=== PATIENT | female | born 1980 ===

== ENCOUNTER 2017-06-03 07:47 | Emergency (ER) | payer OTHER ==
[2017-06-03 07:48] VITALS: BMI 28.0
--- NOTE | 2017-06-03 08:58 | C.PDOC ---
History Of Present Illness 37 yo female c/o dysuria and urinary frequency for 1 week. (+) lower back pain. No fever or vaginal discharge. Notes h/o similar symptoms in the past when diagnosed with UTI. Time Seen by Provider: 06/03/17 08:34 Chief Complaint (Nursing): Female Genitourinary History Per: Patient History/Exam Limitations: no limitations Onset/Duration Of Symptoms: Days Current Symptoms Are (Timing): Still Present Past Medical History Vital Signs: Last Vital Signs Temp 98.0 F 06/03/17 07:52 Pulse 71 06/03/17 07:52 Resp 17 06/03/17 07:52 BP 122/82 06/03/17 07:52 Pulse Ox 99 06/03/17 09:29 - Medical History PMH: Arthritis - [facility] Procedures BILAT TUBAL DIVISION NEC (11/28/13) LOW CERVICAL (11/28/13) Family History: States: Unknown Family Hx - Social History Hx Tobacco Use: No Hx Alcohol Use: No Hx Substance Use: No - Immunization History Hx Tetanus Toxoid Vaccination: No Hx Influenza Vaccination: No Hx Pneumococcal Vaccination: No Review Of Systems Except As Marked, All Systems Reviewed And Found Negative. Constitutional: Negative for: Fever Cardiovascular: Negative for: Chest Pain Respiratory: Negative for: Shortness of Breath Gastrointestinal: Positive for: Abdominal Pain (suprapubic). Negative for: Nausea, Vomiting Genitourinary: Positive for: Dysuria, Frequency. Negative for: Vaginal Discharge Physical Exam - Physical Exam Appears: Well, Non-toxic, No Acute Distress Skin: Normal Color, Warm, Dry Head: Atraumatic, Normacephalic Eye(s): bilateral: Normal Inspection, EOMI Nose: Normal Oral Mucosa: Moist Neck: Normal, Normal ROM, Supple Chest: Symmetrical Cardiovascular: Rhythm Regular Respiratory: Normal Breath Sounds Gastrointestinal/Abdominal: Soft, Tenderness ((+) suprapubic pain) Back: No CVA Tenderness, No Vertebral Tenderness, Paraspinal Tenderness ((+) lower back pain) Extremity: Normal ROM Neurological/Psych: Oriented x3, Normal Speech ED Course And Treatment O2 Sat by Pulse Oximetry: 99 Progress Note: Pt instructed to follow up with PMD in 1-2 days or return to ER if symptoms persist or worsen. Disposition - Disposition Disposition: HOME/ ROUTINE Disposition Time: 09:28 Condition: STABLE Additional Instructions: Follow up with your primary medical doctor or clinic in 2-5 days for further evaluation. Take medications as prescribed. Return to the emergency department at any time if symptoms persist or worsen. Prescriptions: Ciprofloxacin HCl [Cipro] 500 mg PO BID #14 tab Phenazopyridine HCl [Pyridium] 100 mg PO TID #6 tablet Instructions: Urinary Tract Infection in Women (ED) Forms: [facility] (Welsh) - Clinical Impression Clinical Impression: UTI (urinary tract infection)
[2017-06-03 09:12] LABS: RBC URINE 86 /hpf (0-3); URINE BACTERIA OCC (<OCC); URINE BILIRUBIN NEGATIVE (NEGATIVE); URINE BLOOD 3+ (NEGATIVE); URINE COLOR Yellow (YELLOW); URINE GLUCOSE (UA) NORMAL (Normal); URINE KETONE NEGATIVE (NEGATIVE); URINE LEUKOCYTE ESTERASE 3+ Leu/uL (Negative); URINE PROTEIN 2+ mg/dL (NEGATIVE); URINE UROBILINOGEN NORMAL mg/dL (0.2-1.0); WBC CLUMPS MANY /hpf; WBC URINE 944 /hpf (0-5)
[2017-06-03 10:14] VITALS: BP 130/89; PULSE 68; RESP 16; TEMP 97.9; O2SAT 100
== END 2017-06-03 09:45 | disposition home or self-care (01) ==
LOC: C.ER 07:47
DX: N39.0 Urinary tract infection, site not specified (principal)

== ENCOUNTER 2017-07-24 00:33 | Emergency (ER) | payer OTHER ==
[2017-07-24 00:33] VITALS: BMI 28.0
[2017-07-24 00:41] VITALS: O2SAT 98
[2017-07-24 01:53] LABS: RBC URINE 41 /hpf (0-3); URINE BACTERIA RARE (<OCC); URINE BILIRUBIN NEGATIVE (NEGATIVE); URINE BLOOD 2+ (NEGATIVE); URINE COLOR Yellow (YELLOW); URINE GLUCOSE (UA) NORMAL (Normal); URINE KETONE NEGATIVE (NEGATIVE); URINE LEUKOCYTE ESTERASE 3+ Leu/uL (Negative); URINE PROTEIN 1+ mg/dL (NEGATIVE); URINE UROBILINOGEN NORMAL mg/dL (0.2-1.0); WBC CLUMPS FEW /hpf; WBC URINE 274 /hpf (0-5)
--- NOTE | 2017-07-24 01:58 | C.PDOC ---
History Of Present Illness Pt presents to ER with c/o of dysuria si ce yesterday. Reports past h/o intermittent UTI. Pt states at last treatment she did not complete full dose of prescribed antibiotics. Pt denies abd pain, back pain, vomiting, dizziness. Pt is currently menstruating Time Seen by Provider: 07/24/17 00:48 Chief Complaint (Nursing): Female Genitourinary History Per: Patient History/Exam Limitations: no limitations Current Symptoms Are (Timing): Still Present Severity: Mild Associated Symptoms: denies: Fever, Vomiting, Diarrhea, Back Pain, Constipation Recent travel outside of the [place]: No Last Menstral Period: now Past Medical History Vital Signs: Last Vital Signs Temp 97.6 F 07/24/17 02:02 Pulse 78 07/24/17 02:02 Resp 17 07/24/17 02:02 BP 121/68 07/24/17 02:02 Pulse Ox 98 07/24/17 02:02 - Medical History PMH: Arthritis - [facility] Procedures BILAT TUBAL DIVISION NEC (11/28/13) LOW CERVICAL (11/28/13) Family History: States: Unknown Family Hx - Social History Hx Tobacco Use: No Hx Alcohol Use: No Hx Substance Use: No - Immunization History Hx Tetanus Toxoid Vaccination: No Hx Influenza Vaccination: No Hx Pneumococcal Vaccination: No Review Of Systems Constitutional: Negative for: Fever, Chills Gastrointestinal: Negative for: Nausea, Abdominal Pain Genitourinary: Positive for: Dysuria. Negative for: Frequency, Hematuria, Vaginal Discharge Physical Exam - Physical Exam Appears: Well, Non-toxic, No Acute Distress Skin: Normal Color Eye(s): bilateral: Normal Inspection, PERRL Gastrointestinal/Abdominal: Normal Exam, Soft, No Tenderness, No Distention Back: Normal Inspection, No CVA Tenderness Pelvic: Other (not done,no pelvic c/o) ED Course And Treatment O2 Sat by Pulse Oximetry: 98 Disposition Counseled Patient/Family Regarding: Diagnosis, Need For Followup, Rx Given - Disposition Referrals: [facility] [Outside] Disposition: HOME/ ROUTINE Disposition Time: 01:56 Condition: STABLE Additional Instructions: Increase PO fluids Take meds as directed Return to ER if worse Prescriptions: Nitrofurantoin Macrocrystals [Macrobid] 1 cap PO BID #14 cap Phenazopyridine HCl [Pyridium] 100 mg PO TID #5 tab Instructions: Phenazopyridine (By mouth), Nitrofurantoin Macrocrystals (By mouth), Urinary Tract Infection in Women (ED) Forms: [facility] (Congolese) Print Language: CHINESE - Clinical Impression Clinical Impression: UTI (urinary tract infection)
[2017-07-24 02:07] VITALS: BP 121/68; PULSE 78; RESP 17; TEMP 97.6
== END 2017-07-24 02:08 | disposition home or self-care (01) ==
LOC: C.ER 00:33
DX: N39.0 Urinary tract infection, site not specified (principal)

== ENCOUNTER 2017-10-15 09:56 | Emergency (ER) | payer OTHER ==
[2017-10-15 09:58] VITALS: BMI 28.0
[2017-10-15 10:06] VITALS: TEMP 97.9; O2SAT 100
--- NOTE | 2017-10-15 12:08 | C.PDOC ---
History Of Present Illness 37 yr old female presents to the ER for evaluation of sore throat and a lump to the right scalp region for the past 2 weeks. Patient denies fever, chills, vision changes, cough, nausea, vomiting, neck pain, weakness, numbness or headache. Time Seen by Provider: 10/15/17 10:23 Chief Complaint (Nursing): ENT Problem History Per: Patient History/Exam Limitations: no limitations Onset/Duration Of Symptoms: Days (2 weeks) Past Medical History Reviewed: Historical Data, Nursing Documentation, Vital Signs Vital Signs: Last Vital Signs Temp 97.9 F 10/15/17 10:03 Pulse 69 10/15/17 12:15 Resp 18 10/15/17 12:15 BP 136/89 10/15/17 12:15 Pulse Ox 100 10/15/17 12:15 - Medical History PMH: Arthritis, Rheumatoid Arthritis - [facility] Procedures BILAT TUBAL DIVISION NEC (11/28/13) LOW CERVICAL (11/28/13) Family History: States: No Known Family Hx - Social History Hx Tobacco Use: No Hx Alcohol Use: No Hx Substance Use: No - Immunization History Hx Tetanus Toxoid Vaccination: No Hx Influenza Vaccination: No Hx Pneumococcal Vaccination: No Review Of Systems Except As Marked, All Systems Reviewed And Found Negative. Constitutional: Negative for: Fever, Chills Eyes: Negative for: Vision Change ENT: Positive for: Throat Pain (sore throat) Respiratory: Negative for: Cough Gastrointestinal: Negative for: Nausea, Vomiting Musculoskeletal: Negative for: Neck Pain Skin: Positive for: Other (+ lump on the right scalp region) Neurological: Negative for: Weakness, Numbness, Headache Physical Exam - Physical Exam Appears: Non-toxic, No Acute Distress Skin: Warm, Dry, No Rash Head: Atraumatic, Normacephalic Eye(s): bilateral: Normal Inspection, PERRL, EOMI Oral Mucosa: Moist Throat: Erythema (tonsilar), No Exudate Neck: Normal, Normal ROM, Supple Lymphatic: Other (+ tender palpable node on the right, no cellulitic process) Cardiovascular: Rhythm Regular, No Murmur Respiratory: Normal Breath Sounds, No Rales, No Rhonchi, No Stridor, No Wheezing Extremity: Normal ROM, No Swelling Neurological/Psych: Oriented x3, Normal Speech ED Course And Treatment O2 Sat by Pulse Oximetry: 100 (RA) Pulse Ox Interpretation: Normal Medical Decision Making Medical Decision Making: IMPRESSION: Lymphangitis PLAN: * Keflex PO * Motrin PO NOTE: * Patient treated with Keflex and Motrin * On reevaluation, patient reports improvement of symptoms * Patient is discharged home to follow up with PMD in 2 days for further evaluation Disposition Counseled Patient/Family Regarding: Studies Performed, Diagnosis, Need For Followup, Rx Given - Disposition Referrals: at [facility] [Outside] Disposition: HOME/ ROUTINE Disposition Time: 12:05 Condition: STABLE Additional Instructions: follow up with your doctor in 2 days call to make an appointment take medications as prescribed return to ER if symptoms worsens or progress Prescriptions: Cephalexin [Keflex] 500 mg PO QID #40 capsule Naproxen [Naprosyn] 500 mg PO BID PRN #16 tab PRN Reason: Pain, Moderate (4-7) Instructions: Sore Throat, Adult (DC), Chronic Lymphadenitis (DC) Forms: [facility] (Greek), Gen Discharge Inst Greek Print Language: INDONESIAN - Clinical Impression Clinical Impression: Lymphadenitis - Scribe Statement The provider has reviewed the documentation as recorded by the Daisyiblester [place] Provider Attestation: All medical record entries made by the Ave were at my direction and personally dictated by me. I have reviewed the chart and agree that the record accurately reflects my personal performance of the history, physical exam, medical decision making, and the department course for this patient. I have also personally directed, reviewed, and agree with the discharge instructions and disposition.
[2017-10-15 12:16] VITALS: BP 136/89; PULSE 69; RESP 18
== END 2017-10-15 12:17 | disposition home or self-care (01) ==
LOC: C.ER 09:56
DX: I88.9 Nonspecific lymphadenitis, unspecified (principal)

== ENCOUNTER 2018-04-29 20:34 | Observation (INO) | payer MEDICAID, OTHER ==
[2018-04-29 20:35] VITALS: BMI 28.0
[2018-04-29] MEDS ORDERED: Sodium Chloride 0.9% 1,000 ML IV ONE (21:05)
--- NOTE | 2018-04-29 21:09 | C.PDOC ---
History Of Present Illness 38 year old female with PMH RA presents to the ER with a complaint of abdominal pain associated with nausea and NB vomiting since 299. 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 H/o similar episodes in the past with self resolution. Denies fever, sob, dysuria, or diarrhea. 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 denies: Fever, Chills, Diarrhea Exacerbating Factors: None Alleviating Factors: None Recent travel outside of the [place]: No Abnormal Vaginal Bleeding: No Past Medical History Reviewed: Historical Data, Nursing Documentation, Vital Signs Vital Signs: Last Vital Signs Temp 98.1 F 04/30/18 01:27 Pulse 69 04/30/18 01:27 Resp 18 04/30/18 01:27 BP 108/70 04/30/18 01:27 Pulse Ox 100 04/30/18 02:16 - Medical History PMH: Arthritis, Rheumatoid Arthritis Surgical History: - [facility] Procedures BILAT TUBAL DIVISION NEC (11/28/13) LOW CERVICAL (11/28/13) Family History: States: Unknown Family Hx - Social History Hx Tobacco Use: No Hx Alcohol Use: No Hx Substance Use: No - Immunization History Hx Tetanus Toxoid Vaccination: No Hx Influenza Vaccination: No Hx Pneumococcal Vaccination: No Review Of Systems Constitutional: Negative for: Fever, Chills ENT: Negative for: Throat Pain Respiratory: Negative for: Cough Gastrointestinal: Positive for: Nausea, Vomiting, Abdominal Pain. Negative for : Diarrhea Genitourinary: Negative for: Dysuria, Hematuria Skin: Negative for: Rash Physical Exam - Physical Exam Appears: Non-toxic, Other (uncomfortable) Skin: Normal Color, Warm, Dry Head: Atraumatic, Normacephalic Eye(s): bilateral: Normal Inspection, EOMI Nose: Normal Oral Mucosa: Moist Neck: Normal, Normal ROM, Supple Chest: Symmetrical, No Tenderness Cardiovascular: Rhythm Regular Respiratory: Normal Breath Sounds, No Rales, No Rhonchi, No Wheezing Gastrointestinal/Abdominal: Soft, Tenderness (RUQ, epigastric), No Guarding, No Rebound Back: No CVA Tenderness Extremity: Normal ROM Neurological/Psych: Oriented x3, Normal Speech ED Course And Treatment - Laboratory Results Result Diagrams: 04/29/18 21:21 04/29/18 21:21 O2 Sat by Pulse Oximetry: 100 (Room air) Pulse Ox Interpretation: Normal - CT Scan/US CT Abd/Pelvis Other Rad Studies (CT/US): Read By Radiologist, Radiology Report Reviewed CT/US Interpretation: Name: RIGOBERTO WOOD Age: 38Years F Date: 04/29/2018. Requesting Physician: Sulema Cheema PA-C : 1980. [employer] Procedure Ordered As Accession Number of Images. US ABDOMEN COMPLETE US ABDOMEN COMPLETE [id number] 61. Provided Clinical History: Pain. CONFIDENTIALITY STATEMENT. This report is intended only for the use of the referring physician, and only in accordance with law, If you received this in error, call [phone]. Page 1 of 1. EXAM: US Abdomen Complete. EXAM DATE/ TIME: 04/29/2018 9:06 PM. CLINICAL HISTORY: 38 years old, female; Pain; Other : Not specified. TECHNIQUE: Real-time ultrasound of the abdomen with image documentation. COMPARISON: No relevant prior studies available. FINDINGS: Liver: Normal. No mass. Gallbladder: Multiple calcified gallstones are present. Positive Kovacs's sign. Gallbladder wall. thickening measuring 5 mm. Common bile duct: Normal. No stones. No dilation. 5 mm. Pancreas: The pancreas is poorly-visualized due to overlying bowel gas. Kidneys: Normal. No mass. No hydronephrosis. Spleen: Normal. No splenomegaly. Aorta: Normal. No aneurysm. Inferior vena cava: Normal. IMPRESSION: : Mildly thick walled gallbladder with multiple gallstones and positive Kovacs's sign. Possible acute cholecystitis. Progress Note: Blood work, urinalysis, and abdominal US ordered. IV fluids, toradol, protonix, and zofran administered. On re-evaluation, pt notes pain improved. Case discussed with surgeon decommissioning well site manager, Dr Short, and Dr Arreola who evaluated pt at bedside and agreed upon plan and admission. Case discussed with Dr Sommers, agreed upon admission. Disposition - Disposition Disposition: HOSPITALIZED Disposition Time: 01:00 Condition: STABLE - Clinical Impression Clinical Impression: Acute cholecystitis - PA / CADASTRAL ENGINEER / Resident Statement MD/DO has reviewed & agrees with the documentation as recorded. - Scribe Statement The provider has reviewed the documentation as recorded by the Scriblester Vela All medical record entries made by the Daisyiblester were at my direction and personally dictated by me. I have reviewed the chart and agree that the record accurately reflects my personal performance of the history, physical exam, medical decision making, and the department course for this patient. I have also personally directed, reviewed, and agree with the discharge instructions and disposition.
[2018-04-29] MEDS ORDERED: Sodium Chloride 0.9% 1,000 ML ONE (21:25)
[2018-04-29 21:26] LABS: BASO # 0.1 K/uL (0.0-0.2); BASO % 0.4 % (0.0-2.0); EOS % 0.2 % (0.0-4.0); HEMOGLOBIN 13.3 g/dL (11.0-16.0); LYMPH # 1.8 K/uL (1.0-4.3); LYMPH % 12.8 % (20.0-40.0); MEAN CELL VOLUME 88.7 fL (81.0-99.0); MEAN CORPUSCULAR HEMOGLOBIN 30.2 pg (27.0-31.0); MEAN PLATELET VOLUME 7.3 fL (7.2-11.7); MONO # 0.9 K/uL (0.0-0.8); MONO % 6.1 % (0.0-10.0); NEUT # 11.6 K/uL (1.8-7.0); NEUT % 80.5 % (50.0-75.0); RBC 4.41 Mil/uL (3.80-5.20); RED CELL DISTRIBUTION WIDTH 14.3 % (11.5-14.5); WHITE BLOOD COUNT 14.5 K/uL (4.8-10.8)
[2018-04-29 21:39] LABS: URINE BILIRUBIN NEGATIVE (NEGATIVE); URINE BLOOD NEGATIVE (NEGATIVE); URINE CLARITY Clear (Clear); URINE COLOR Yellow (YELLOW); URINE GLUCOSE (UA) NORMAL (Normal); URINE LEUKOCYTE ESTERASE NEG Leu/uL (Negative); URINE PROTEIN 2+ mg/dL (NEGATIVE); URINE UROBILINOGEN NORMAL mg/dL (0.2-1.0)
[2018-04-29 21:49] LABS: ALB/GLOB RATIO 1.4 (1.0-2.1); ALBUMIN 4.9 g/dL (3.5-5.0); ALT/SGPT 22 U/L (9-52); AST/SGOT 16 U/L (14-36); BLOOD UREA NITROGEN 12 mg/dL (7-17); CALCIUM 9.5 mg/dl (8.6-10.4); GFR NON-AFRICAN AMERICAN > 60; LIPASE 50 U/L (23-300)
[2018-04-29] MEDS ORDERED: Potassium Chloride 20 mEq ER Tab PO STA (21:50)
[2018-04-29] MEDS ORDERED: Potassium Chloride 20 mEq ER Tab PO ONE (22:23)
[2018-04-29] MEDS ORDERED: Piperacillin/Tazobact 3.375 gm 100 ML IV STA (23:41)
[2018-04-29] MEDS ORDERED: Piperacillin/Tazobact 3.375 gm 100 ML IVPB ONE (23:52)
--- NOTE | 2018-04-30 01:25 | CP.PCM.CON ---
History of Present Illness - History of Present Illness History of Present Illness: General surgery consult note for Dr. Tesha Arreola, PGY-2 Pt S & E at bedside at 0020 38F w/PMH sig for RA consulted for RUQ pain x 1 day. Pt reports severe, intermittent RUQ pain that radiates to back. Admits to previous episodes of similar (this is her 4th epside in 2 years, occurs with greasy foods), nausea, nb, bilious emesis. Denies F & C, constipation, diarrhea, CP, SOB, changes in urinary habits, other complaints. In Ed -afebrile, leukocytosis of 14.5. T bili 1.4.Ab U/S w/mildly thick walled GB w/multiple Gallstones, + Koavcs's. PMH: RA PSH: x 2 All: Denies SH: Denies ETOH, tobacco or illicit drug use Review of Systems - Review of Systems All systems: reviewed and no additional remarkable complaints except - Constitutional Constitutional: absent: Chills, Fever, Headache - EENT Nose/Mouth/Throat: absent: Sore Throat - Cardiovascular Cardiovascular: absent: Chest Pain - Gastrointestinal Gastrointestinal: Abdominal Pain, Nausea, Vomiting. absent: Constipation, Diarrhea, Hematemesis, Hematochezia - Genitourinary Genitourinary: Dysuria (occasional). absent: Hematuria - Musculoskeletal Musculoskeletal: Back Pain - Integumentary Integumentary: absent: Rash - Neurological Neurological: absent: Headaches - Psychiatric Psychiatric: absent: Change in Appetite Past Patient History - Past Social History Smoking Status: Never Smoked - CARDIAC Hx Cardiac Disorders: No - MUSCULOSKELETAL/RHEUMATOLOGICAL Hx Arthritis: Yes Hx Rheumatoid Arthritis: Yes - PSYCHIATRIC Hx Substance Use: No - SURGICAL HISTORY Hx Surgeries: Yes Hx Section: Yes (x2) - ANESTHESIA Hx Anesthesia: Yes Hx Anesthesia Reactions: No Meds Allergies/Adverse Reactions: Allergies Allergy/AdvReac Type Severity Reaction Status Date / Time No Known Allergies Allergy Verified 10/15/17 10:06 - Medications Medications: Current Medications Potassium Chloride/Dextrose/Sod Cl (Potassium Chl 20 Meq In D5-1/2ns) 1,000 mls @ 125 mls/hr IV .Q8H MAGGIE Piperacillin Sod/Tazobactam Sod (Zosyn 2.25 Gm Iv Premix) 2.25 gm in 50 mls @ 100 mls/hr IVPB Q6H MAGGIE PRN Reason: Protocol Morphine Sulfate (Morphine) 2 mg IVP Q4 PRN PRN Reason: Pain, severe (8-10) Physical Exam - Constitutional Appears: Non-toxic, No Acute Distress - Head Exam Head Exam: ATRAUMATIC, NORMAL INSPECTION, NORMOCEPHALIC - Eye Exam Eye Exam: EOMI, Normal appearance - ENT Exam ENT Exam: Mucous Membranes Moist, Normal Exam - Neck Exam Neck exam: Positive for: Full Rom, Normal Inspection - Respiratory Exam Respiratory Exam: Clear to Auscultation Bilateral, NORMAL BREATHING PATTERN - Cardiovascular Exam Cardiovascular Exam: REGULAR RHYTHM, +S1, +S2 - GI/Abdominal Exam GI & Abdominal Exam: Hyperactive Bowel Sounds, Soft, Tenderness (RUQ). absent: Distended, Firm, Guarding, Hernia, Rebound, Rigid - Extremities Exam Extremities exam: Positive for: normal inspection. Negative for: tenderness - Neurological Exam Neurological exam: Alert, CN II-XII Intact, Oriented x3 - Psychiatric Exam Psychiatric exam: Normal Affect, Normal Mood - Skin Skin Exam: Dry, Intact, Normal Color, Warm Results - Vital Signs Recent Vital Signs: Last Vital Signs Temp 97.4 F L 04/30/18 01:14 Pulse 72 04/30/18 01:14 Resp 16 04/30/18 01:14 BP 129/85 04/30/18 01:14 Pulse Ox 99 04/30/18 01:14 - Labs Result Diagrams: 04/29/18 21:21 04/29/18 21:21 Labs: Laboratory Results - last 24 hr 04/29/18 04/29/18 04/29/18 21:21 21:21 21:21 WBC 14.5 H D RBC 4.41 Hgb 13.3 Hct 39.1 MCV 88.7 MCH 30.2 MCHC 34.0 RDW 14.3 Plt Count 338 MPV 7.3 Neut % (Auto) 80.5 H Lymph % (Auto) 12.8 L Placer % (Auto) 6.1 Eos % (Auto) 0.2 Baso % (Auto) 0.4 Neut # (Auto) 11.6 H Lymph # (Auto) 1.8 Placer # (Auto) 0.9 H Eos # (Auto) 0.0 Baso # (Auto) 0.1 Sodium 139 Potassium 3.2 L Chloride 100 Carbon Dioxide 25 Anion Gap 17 BUN 12 Creatinine 0.6 L Est GFR ( Amer) > 60 Est GFR (Non-Af Amer) > 60 Random Glucose 127 H Calcium 9.5 Total Bilirubin 1.4 H AST 16 ALT 22 Alkaline Phosphatase 70 Total Creatine Kinase Total Protein 8.5 H Albumin 4.9 Globulin 3.5 Albumin/Globulin Ratio 1.4 Lipase 50 Urine Color Yellow Urine Clarity Clear Urine pH 8.0 Ur Specific [place] 1.025 Urine Protein 2+ H Urine Glucose (UA) Normal Urine Ketones 1+ H Urine Blood Negative Urine Nitrate Negative Urine Bilirubin Negative Urine Urobilinogen Normal Ur Leukocyte Esterase Neg Urine WBC (Auto) < 1 Urine RBC (Auto) 12 H Urine HCG, Qual 04/29/18 04/29/18 21:21 21:21 WBC RBC Hgb Hct MCV MCH MCHC RDW Plt Count MPV Neut % (Auto) Lymph % (Auto) Placer % (Auto) Eos % (Auto) Baso % (Auto) Neut # (Auto) Lymph # (Auto) Placer # (Auto) Eos # (Auto) Baso # (Auto) Sodium Potassium Chloride Carbon Dioxide Anion Gap BUN Creatinine Est GFR ( Amer) Est GFR (Non-Af Amer) Random Glucose Calcium Total Bilirubin AST ALT Alkaline Phosphatase Total Creatine Kinase 58 Total Protein Albumin Globulin Albumin/Globulin Ratio Lipase Urine Color Urine Clarity Urine pH Ur Specific [place] Urine Protein Urine Glucose (UA) Urine Ketones Urine Blood Urine Nitrate Urine Bilirubin Urine Urobilinogen Ur Leukocyte Esterase Urine WBC (Auto) Urine RBC (Auto) Urine HCG, Qual Negative Assessment & Plan - Assessment and Plan (Free Text) Assessment: 38F w/acute cholecystitis Plan: Admit to medical service IV Abx Pain control IVF NPO Anti-emetic PRN Consent in chart Plan for OR 04/[address] Deja Arreola, PGY-2 - Date & Time Date: 04/30/18 Time: 00:30
--- NOTE | 2018-04-30 01:28 | CP.PCM.HP ---
<Mendez Garcia - Last Filed: 04/30/18 02:43> History of Present Illness - History of Present Illness History of Present Illness: Ms. Cohen is a 38 year old female with a PMHx of Rheumatoid Arthritis who presents with complaints of abdominal pain and non-bloody vomiting that started at 3AM (04/29/18). Patient describes the pain as sharp, 10/10 and non-radiating. Her pain is worse after foods. Patient has had similar pain intermittently for several months. She denies any fever, chills, headache, chest pain, shortness of breath, changes in bowel habits, or urinary symptoms. She still admits to some nausea. ROS: As stated above PMHx: Rheumatoid Arthritis PSHx: x 2 Allergies: NKDA SocialHx: Denies Tobacco, EtOH,or illicit drug use FamHx: Denies Meds: Methotrexate 5mg IM Weekly, Prednisone 5mg Daily. Present on Admission - Present on Admission Any Indicators Present on Admission: No Review of Systems - Review of Systems All systems: reviewed and no additional remarkable complaints except (As per HPI ) Review of Systems: As per HPI Past Patient History - Past Social History Smoking Status: Never Smoked - CARDIAC Hx Cardiac Disorders: No - MUSCULOSKELETAL/RHEUMATOLOGICAL Hx Arthritis: Yes Hx Rheumatoid Arthritis: Yes - PSYCHIATRIC Hx Substance Use: No - SURGICAL HISTORY Hx Surgeries: Yes Hx Section: Yes (x2) - ANESTHESIA Hx Anesthesia: Yes Hx Anesthesia Reactions: No Meds Allergies/Adverse Reactions: Allergies Allergy/AdvReac Type Severity Reaction Status Date / Time No Known Allergies Allergy Verified 10/15/17 10:06 Physical Exam - Constitutional Appears: Non-toxic, No Acute Distress, Other (Tearful) - Head Exam Head Exam: ATRAUMATIC, NORMAL INSPECTION, NORMOCEPHALIC - Eye Exam Eye Exam: EOMI, Normal appearance - ENT Exam ENT Exam: Mucous Membranes Moist - Neck Exam Neck exam: Positive for: Normal Inspection - Respiratory Exam Respiratory Exam: Clear to Auscultation Bilateral, NORMAL BREATHING PATTERN. absent: Rales, Rhonchi, Wheezes - Cardiovascular Exam Cardiovascular Exam: RRR, +S1, +S2. absent: JVD - GI/Abdominal Exam GI & Abdominal Exam: Normal Bowel Sounds, Soft, Tenderness (RUQ). absent: Distended, Firm, Guarding, Hernia, Rebound, Rigid Additional comments: Negative Kovacs's Sign. - Extremities Exam Extremities exam: Positive for: normal capillary refill. Negative for: pedal edema - Neurological Exam Neurological exam: Alert, Oriented x3 - Psychiatric Exam Psychiatric exam: Normal Affect, Normal Mood - Skin Skin Exam: Dry, Intact, Normal Color, Warm Results - Vital Signs Recent Vital Signs: Last Vital Signs Temp 98.1 F 04/30/18 01:27 Pulse 69 04/30/18 01:27 Resp 18 04/30/18 01:27 BP 108/70 04/30/18 01:27 Pulse Ox 98 04/30/18 01:27 - Labs Result Diagrams: 04/29/18 21:21 04/29/18 21:21 Labs: Laboratory Results - last 24 hr 04/29/18 04/29/18 04/29/18 21:21 21:21 21:21 WBC 14.5 H D RBC 4.41 Hgb 13.3 Hct 39.1 MCV 88.7 MCH 30.2 MCHC 34.0 RDW 14.3 Plt Count 338 MPV 7.3 Neut % (Auto) 80.5 H Lymph % (Auto) 12.8 L [place] % (Auto) 6.1 Eos % (Auto) 0.2 Baso % (Auto) 0.4 Neut # (Auto) 11.6 H Lymph # (Auto) 1.8 [place] # (Auto) 0.9 H Eos # (Auto) 0.0 Baso # (Auto) 0.1 Sodium 139 Potassium 3.2 L Chloride 100 Carbon Dioxide 25 Anion Gap 17 BUN 12 Creatinine 0.6 L Est GFR ( Amer) > 60 Est GFR (Non-Af Amer) > 60 Random Glucose 127 H Calcium 9.5 Total Bilirubin 1.4 H AST 16 ALT 22 Alkaline Phosphatase 70 Total Creatine Kinase Total Protein 8.5 H Albumin 4.9 Globulin 3.5 Albumin/Globulin Ratio 1.4 Lipase 50 Urine Color Yellow Urine Clarity Clear Urine pH 8.0 Ur Specific [place] 1.025 Urine Protein 2+ H Urine Glucose (UA) Normal Urine Ketones 1+ H Urine Blood Negative Urine Nitrate Negative Urine Bilirubin Negative Urine Urobilinogen Normal Ur Leukocyte Esterase Neg Urine WBC (Auto) < 1 Urine RBC (Auto) 12 H Urine HCG, Qual 04/29/18 04/29/18 21:21 21:21 WBC RBC Hgb Hct MCV MCH MCHC RDW Plt Count MPV Neut % (Auto) Lymph % (Auto) [place] % (Auto) Eos % (Auto) Baso % (Auto) Neut # (Auto) Lymph # (Auto) [place] # (Auto) Eos # (Auto) Baso # (Auto) Sodium Potassium Chloride Carbon Dioxide Anion Gap BUN Creatinine Est GFR ( Amer) Est GFR (Non-Af Amer) Random Glucose Calcium Total Bilirubin AST ALT Alkaline Phosphatase Total Creatine Kinase 58 Total Protein Albumin Globulin Albumin/Globulin Ratio Lipase Urine Color Urine Clarity Urine pH Ur Specific [place] Urine Protein Urine Glucose (UA) Urine Ketones Urine Blood Urine Nitrate Urine Bilirubin Urine Urobilinogen Ur Leukocyte Esterase Urine WBC (Auto) Urine RBC (Auto) Urine HCG, Qual Negative Assessment & Plan - Assessment and Plan (Free Text) Assessment: 38 year old female with a PMHx of Rheumatoid Arthritis admitted for evaluation and treatment of acute cholecystitis Plan: Acute Cholecystitis Abd US (Adm): Mildly thick walled gallbladder with multiple gallstones and positive Kovacs's sign. Possible acute cholecystitis. +Leukocytosis @ 14.5 , Afebrile General Surgery Consulted (Dr. Short) D5 in 1/2NS w/ 20meQ K+ @ 125mls/hr Zofran PRN Morphine 2 Q4 PRN Zosyn 3.375 Q6H NPO Hypokalemia 40 MeQ given in ED Fluids with 20MeQ Monitor, Replenish PRN Hx of Rheumatoid Arthritis Home meds: Prednisone 5mg PO Daily Prednisone 20mg PO Daily for 48 hrs post-Op Proph SCD's NPO Patient discussed with Attending Mendez Garcia, PGY-2 <Gio Sommers P - Last Filed: 04/30/18 06:32> Results - Vital Signs Recent Vital Signs: Last Vital Signs Temp 98.1 F 04/30/18 01:27 Pulse 69 04/30/18 01:27 Resp 18 04/30/18 01:27 BP 108/70 04/30/18 01:27 Pulse Ox 100 04/30/18 05:18 - Labs Result Diagrams: 04/29/18 21:21 04/29/18 21:21 Labs: Laboratory Results - last 24 hr 04/29/18 04/29/18 04/29/18 21:21 21:21 21:21 WBC 14.5 H D RBC 4.41 Hgb 13.3 Hct 39.1 MCV 88.7 MCH 30.2 MCHC 34.0 RDW 14.3 Plt Count 338 MPV 7.3 Neut % (Auto) 80.5 H Lymph % (Auto) 12.8 L [place] % (Auto) 6.1 Eos % (Auto) 0.2 Baso % (Auto) 0.4 Neut # (Auto) 11.6 H Lymph # (Auto) 1.8 [place] # (Auto) 0.9 H Eos # (Auto) 0.0 Baso # (Auto) 0.1 Sodium 139 Potassium 3.2 L Chloride 100 Carbon Dioxide 25 Anion Gap 17 BUN 12 Creatinine 0.6 L Est GFR ( Amer) > 60 Est GFR (Non-Af Amer) > 60 Random Glucose 127 H Calcium 9.5 Total Bilirubin 1.4 H AST 16 ALT 22 Alkaline Phosphatase 70 Total Creatine Kinase Total Protein 8.5 H Albumin 4.9 Globulin 3.5 Albumin/Globulin Ratio 1.4 Lipase 50 Urine Color Yellow Urine Clarity Clear Urine pH 8.0 Ur Specific [place] 1.025 Urine Protein 2+ H Urine Glucose (UA) Normal Urine Ketones 1+ H Urine Blood Negative Urine Nitrate Negative Urine Bilirubin Negative Urine Urobilinogen Normal Ur Leukocyte Esterase Neg Urine WBC (Auto) < 1 Urine RBC (Auto) 12 H Urine HCG, Qual 04/29/18 04/29/18 21:21 21:21 WBC RBC Hgb Hct MCV MCH MCHC RDW Plt Count MPV Neut % (Auto) Lymph % (Auto) [place] % (Auto) Eos % (Auto) Baso % (Auto) Neut # (Auto) Lymph # (Auto) [place] # (Auto) Eos # (Auto) Baso # (Auto) Sodium Potassium Chloride Carbon Dioxide Anion Gap BUN Creatinine Est GFR ( Amer) Est GFR (Non-Af Amer) Random Glucose Calcium Total Bilirubin AST ALT Alkaline Phosphatase Total Creatine Kinase 58 Total Protein Albumin Globulin Albumin/Globulin Ratio Lipase Urine Color Urine Clarity Urine pH Ur Specific [place] Urine Protein Urine Glucose (UA) Urine Ketones Urine Blood Urine Nitrate Urine Bilirubin Urine Urobilinogen Ur Leukocyte Esterase Urine WBC (Auto) Urine RBC (Auto) Urine HCG, Qual Negative Attending/Attestation - Attestation I have personally seen and examined this patient.: Yes I have fully participated in the care of the patient.: Yes I have reviewed all pertinent clinical information: Yes Notes (Text): Assessment Acute cholecystitis by history, exam and usg findings. H/o RA on methotrexate 7mg subq weekly and prednisone 5mg daily, no active symptoms of RA, when diagnosed symptoms mainly related with b/l small joints of hands, has no obvious deformity. Plan NPO IVF Zosyn Surgery seeing paitient, likely inpatient cholecystectomy Prednisone dose will increased to 10, post op for 2 days will give 20mg, due to increase need Methotrexate will be held See orders for detail.
[2018-04-30] MEDS: Potassium Ch 20mEq in D5-1/2NS 1,000 ML IV SCH ×3 (01:48→18:14)
[2018-04-30] MEDS: Piperacill/Tazo 3.375gm in Dex 3.375 GM/50 ML BAG IVPB SCH ×4 (05:34→23:50)
[2018-04-30] MEDS ORDERED: Piperacill/Tazo 2.25gm in Dex 2.25 GM/50 ML BAG IVPB SCH (06:00)
[2018-04-30 08:26] LABS: BASO % 0.3 % (0.0-2.0); EOS # 0.2 K/uL (0.0-0.7); EOS % 2.3 % (0.0-4.0); HEMOGLOBIN 12.4 g/dL (11.0-16.0); LYMPH # 1.4 K/uL (1.0-4.3); LYMPH % 15.6 % (20.0-40.0); MEAN CELL VOLUME 89.7 fL (81.0-99.0); MEAN CORPUSCULAR HGB CONC 34.6 g/dL (33.0-37.0); MEAN PLATELET VOLUME 7.6 fL (7.2-11.7); MONO # 0.6 K/uL (0.0-0.8); MONO % 6.2 % (0.0-10.0); NEUT # 6.7 K/uL (1.8-7.0); NEUT % 75.6 % (50.0-75.0); RBC 3.98 Mil/uL (3.80-5.20); RED CELL DISTRIBUTION WIDTH 14.1 % (11.5-14.5); WHITE BLOOD COUNT 8.9 K/uL (4.8-10.8)
[2018-04-30 08:36] LABS: INR 1.2; PROTHROMBIN TIME 13.1 SECONDS (9.7-12.2)
[2018-04-30 08:41] LABS: ALB/GLOB RATIO 1.3 (1.0-2.1); ALT/SGPT 26 U/L (9-52); AST/SGOT 12 U/L (14-36); BLOOD UREA NITROGEN 11 mg/dL (7-17); CALCIUM 8.6 mg/dl (8.6-10.4); GFR NON-AFRICAN AMERICAN > 60
--- NOTE | 2018-04-30 11:07 | RAD ---
Date of service: 04/30/2018 HISTORY: Pre-Op COMPARISON: No prior. TECHNIQUE: Chest PA and lateral FINDINGS: LUNGS: No active pulmonary disease. PLEURA: No significant pleural effusion identified. No pneumothorax apparent. CARDIOVASCULAR: Normal. OSSEOUS STRUCTURES: No significant abnormalities. VISUALIZED UPPER ABDOMEN: Normal. OTHER FINDINGS: None. IMPRESSION: No active disease.
--- NOTE | 2018-04-30 11:30 | US ---
HISTORY: Pain COMPARISON: None available TECHNIQUE: Sonographic evaluation of the abdomen. FINDINGS: LIVER: Measures 15.8 cm in sagittal dimension and appears within normal limits of size, shape, and echotexture. No focal hepatic mass identified. The main portal vein appears patent with normal directional flow. No intrahepatic bile duct dilatation. GALLBLADDER: Gallstones. Gallbladder wall thickening/pericholecystic edema measuring approximately 5 mm. Positive sonographic Kovacs's sign as assessed by the merchandising professor. COMMON BILE DUCT: Measures 5 mm. PANCREAS: Not well visualized. RIGHT KIDNEY: Measures 11.2 x 4.2 x 4.7cm. No obstructing calculus or hydronephrosis identified. LEFT KIDNEY: Measures 10.9 x 5.6 x 5.4cm. No obstructing calculus or hydronephrosis identified. SPLEEN: Measures approximately 10.4 cm. AORTA: Limited views appear unremarkable. IVC: Limited views appear unremarkable. OTHER FINDINGS: None. IMPRESSION: Mild gallbladder wall thickening, cholelithiasis, and positive sonographic Kovacs's sign. Correlate clinically for acute cholecystitis. Preliminary impression was provided by virtual radiologic.
[2018-04-30] MEDS ORDERED: Bupivacaine 0.25% 20 ML INJ IJ ONE (12:11)
[2018-04-30] MEDS ORDERED: Propofol 10 mg/ml Inj (20 ML) ONE (12:31)
[2018-04-30] MEDS ORDERED: Midazolam 2 MG/2 ML VIAL ONE (12:31)
[2018-04-30] MEDS ORDERED: Neostigmine Methylsulfate 3mg/3ml Syringe IV ONE (13:53)
[2018-04-30] MEDS ORDERED: Morphine 4 MG/ML VIAL IVP PRN (14:13)
[2018-04-30] MEDS: HYDROmorphone 0.5 mg/0.5 ml ISec IVP PRN ×3 (14:26→15:22)
[2018-04-30] MEDS ORDERED: HYDROmorphone 0.5 mg/0.5 ml ISec ONE (14:29)
[2018-04-30 16:31] VITALS: RESP 20
[2018-04-30] MEDS: Sodium Chloride 0.9% 1,000 ML IV SCH (21:16)
[2018-05-01 00:58] VITALS: O2SAT 99
[2018-05-01] MEDS: Sodium Chloride 0.9% 1,000 ML IV SCH (03:00)
[2018-05-01] MEDS: Piperacill/Tazo 3.375gm in Dex 3.375 GM/50 ML BAG IVPB SCH ×2 (06:32→11:31)
[2018-05-01 06:34] LABS: BASO % 0.3 % (0.0-2.0); EOS # 0.1 K/uL (0.0-0.7); EOS % 1.1 % (0.0-4.0); HEMOGLOBIN 10.9 g/dL (11.0-16.0); LYMPH # 1.7 K/uL (1.0-4.3); LYMPH % 21.3 % (20.0-40.0); MEAN CELL VOLUME 89.8 fL (81.0-99.0); MEAN CORPUSCULAR HEMOGLOBIN 30.5 pg (27.0-31.0); MEAN PLATELET VOLUME 7.4 fL (7.2-11.7); MONO # 0.7 K/uL (0.0-0.8); MONO % 8.8 % (0.0-10.0); NEUT # 5.5 K/uL (1.8-7.0); NEUT % 68.5 % (50.0-75.0); NRBC % 0.1 % (0.0-2.0); RBC 3.56 Mil/uL (3.80-5.20)
[2018-05-01 07:13] LABS: INR 1.3; PROTHROMBIN TIME 14.7 SECONDS (9.7-12.2)
[2018-05-01 07:37] LABS: ALB/GLOB RATIO 1.2 (1.0-2.1); ALBUMIN 3.3 g/dL (3.5-5.0); ALT/SGPT 63 U/L (9-52); AST/SGOT 46 U/L (14-36); BLOOD UREA NITROGEN 6 mg/dL (7-17); CALCIUM 8.1 mg/dl (8.6-10.4); GFR NON-AFRICAN AMERICAN > 60
[2018-05-01 08:05] VITALS: BP 125/75; PULSE 74; TEMP 98.5
[2018-05-01] MEDS ORDERED: Potassium Chloride 20 mEq ER Tab PO ONE (10:15)
[2018-05-01] MEDS ORDERED: Oxycodone/Acetaminophen 5/325 mg Tab PO PRN (10:24)
[2018-05-01] MEDS ORDERED: Pneumococcal 23-Valent Vaccine IM ONE (12:00)
--- NOTE | 2018-05-02 07:07 | CARD ---
APPROVED REPORT Date of service: 04/30/2018 EKG Measurement Heart [id number] <Conclusion> Normal sinus rhythm Normal ECG
[2018-05-03] MEDS ORDERED: Pneumococcal 23-Valent Vaccine IM ONE (12:00)
[2018-05-08] MEDS ORDERED: METHOTREXATE IM SCH (10:00)
--- NOTE | 2018-05-12 19:15 | PCM.SURG1 ---
Surgeon's Initial Post Op Note - Surgeon's Notes Surgeon: Dr. Short Christmas Tree Grower: Dr. Hayes Type of Anesthesia: General Endo Pre-Operative Diagnosis: acute cholecystitis Operative Findings: same Post-Operative Diagnosis: same Operation Performed: laparoscopic cholecystectomy Specimen/Specimens Removed: gallbladder Estimated Blood Loss: EBL {In ML}: 30 Blood Products Given: N/A Drains Used: No Drains Post-Op Condition: Good Date of Surgery/Procedure: 04/30/18 Time of Surgery/Procedure: 13:00
--- NOTE | 2018-05-13 07:41 | OP ---
PROCEDURE DATE: 04/30/2018 PREOPERATIVE DIAGNOSIS: Acute cholecystitis. POSTOPERATIVE DIAGNOSIS: Acute cholecystitis. SURGEON: Lester Short MD SYSTEM SAFETY ENGINEER: Bishop Hayes DO, PGY-3 ANESTHESIA: General endotracheal. ANETHESIOLOGIST: Naima Muse MD FINDINGS: Acute cholecystitis. ESTIMATED BLOOD LOSS: 30 mL. DRAINS: None. COMPLICATIONS: None. SPECIMEN: Gallbladder. INDICATIONS FOR PROCEDURE: The patient is a 38-year-old female presenting with right upper quadrant pain. DESCRIPTION OF PROCEDURE: The patient was placed on the operating table in the supine position. General anesthesia was induced. A time-out was completed verifying the correct patient, procedure, time and positioning prior to the start of the procedure. The abdomen was prepped and draped in the usual sterile fashion. An incision was made in the natural skin line below the umbilicus. The fascia was elevated, and a Veress needle was inserted. The abdomen was then insulated with carbon dioxide to a pressure of 12mmHg. The patient tolerated the intubation well, and a 11 mm trocar was then inserted using Visiport to visualize the layers of the abdomen during insertion. The laparoscope was inserted. An epigastric 5 mm port was placed, and the intraabdominal cavity was inspected and no abnormalities were found. Then, a left lower quadrant port was placed under direct visualization The patient was placed in reverse Trendelenburg position with right side up, adhesion around the umbilical port was taken down. An epigastric 5 mm port was placed, and the intraabdominal cavity was inspected and no abnormalities were found. A right quadrant port was placed under direct visualization. The table was placed in a reverse Trendelenburg position with the right side up. The gallbladder was identified and grasped with an atraumatic grasper and retracted cephalad exposing Calot's triangle. The peritoneum overlying the gallbladder, infundibulum was then incised, and the cystic duct and cystic artery were identified and circumferentially dissected. The cystic duct and cystic artery were then triply clipped and divided close to the gallbladder. The gallbladder was then dissected from the peritoneal attachments using electrocautery. The gallbladder was . The gallbladder was removed using an endoscopic retrieval bag, placed to the umbilical port. The gallbladder was passed off the table as a specimen. The gallbladder fossa was copiously irrigated with saline, and hemostasis was obtained. There was no evidence of bleeding from the gallbladder fossa after hemostasis was achieved using electrocautery. There was no evidence of cystic artery bleeding or leakage from bile from the cystic duct stump. The intraperitoneal cavity was examined. No abnormalities were identified. Irrigation fluid was removed. The trocars were then removed. There was no active bleeding noted from the trocar insertion site. The laparoscope was withdrawn, and the umbilical trocar removed. The abdomen was allowed to collapse to the fascia. The 11 m trocar was closed with 0 Vicryl UR-6 suture. The skin was closed with subicular sutures of 4-0 Monocryl, and Steri-strips were applied. All instruments, counts, sponges, and sutures were declared to be correct at the end of the procedure. The patient tolerated the procedure well and was taken to the post anesthesia care unit after extubation in stable condition. Bishop Hayes DO Lester Short MD
== END 2018-05-01 12:49 | disposition home or self-care (01) ==
LOC: C.ER 20:34 → C.9E 04-30 00:12 → C.5S 04-30 01:07
PROVIDERS: ADMIT Surgery; ATTEND Surgery
DX: K80.10 Calculus of gallbladder with chronic cholecystitis without obstruction (principal)
CPT/HCPCS: 36415; 47562; 71046; 76700; 80053; 81001; 82550; 83690; 83735; 84703; 85025; 85610; 85730; 87040; 88304; 90732; 93005; 96361; 96365; 96366; 96375; 96376; 99285; C9113; G0009; G0378; J1170; J1885; J2250; J2405; J2543; J2704; J2710; J3010; J7030

== ENCOUNTER 2018-08-20 09:44 | Outpatient (CLI) | payer SELFPAY | END 2018-08-20 09:45 | disposition home or self-care (01) | LOC: C.LAB 09:44 | DX: M05.79 Rheumatoid arthritis with rheumatoid factor of multiple sites without organ or systems involvement (principal) ==

== ENCOUNTER 2018-11-14 09:43 | Outpatient (CLI) | payer SELFPAY | END 2018-11-14 09:44 | disposition home or self-care (01) | LOC: C.LAB 09:43 | DX: M05.89 Other rheumatoid arthritis with rheumatoid factor of multiple sites (principal) ==